=== PATIENT | male | born 1930 | race Caucasian/White ===

== ENCOUNTER 2016-11-01 12:36 | Emergency (ER) | payer MEDICARE ==
[~2016-11-01 12:36] MED LIST: CEPH-512 PO
[2016-11-01 12:50] VITALS: BP 112/60; PULSE 90; RESP 18; O2SAT 97
[2016-11-01 13:03] LABS: BASOPHILS % (AUTO) 0.3 % (0-3); EOSINOPHILS % (AUTO) 0.7 % (0-5); MONOCYTES % (AUTO) 5.6 % (4-12); Mean Corpuscular Hemoglobin 25.4 pg (27.0-35.0); Mean Corpuscular Volume 82.8 fL (81-100); NEUTROPHILS % (AUTO) 74.8 % (40-74); Platelet Count 254 bil/L (150-400)
--- NOTE | 2016-11-01 13:10 | ED.REPORT ---
HPI-General Illness Date of Service Nov 01, 2016 ED Provider: Vijaya Altman Wagner is an 86-year-old male with a history of dementia presenting via EMS from the [facility] in [place] for a 2 day history of increasing agitation. Caregivers report a history of acting out aggressively. Patient struck a plate glass window lacerating his right fifth MCP joint this morning. Caregivers are concerned regarding possible pneumonia, UTI, right knee pain causing increased agitation. He is unable to provide an accurate history or provide any complaints at this time. Nursing Notes Stated Complaint: MENTAL STATUS CHANGE Chief Complaint: General Complaint Nursing Notes Reviewed: Yes Allergies: Coded Allergies: lovastatin (Verified Allergy, Unknown, 11/01/16) Scheduled Cephalexin (Keflex) 500 Mg Capsule 500 MG PO QID Risperidone (Risperdal) 1 Mg Tablet 1 MG PO QAM General Time Seen by MD: 12:49 Chief Complaint Laceration (right fifth MCP joint ) Hx Obtained From: EMS Unable to Obtain Hx: Mental status Arrived By: Ambulance Location: : Wrist right (right pinky finger) Recent Healthcare: Recent doctor visit Similar Sx Previous: No Past Medical History Past Medical History Dementia GI Bleed Right Tibia Fracture Reports: Diabetes mellitus, Hypertension Past Surgical History Reports: Appendectomy Smoking History Never Smoker Social History Alcohol Use: Denies alcohol use Other Social History: Lives alone Ambulatory Status Independent Unable to Obtain History Past medical history, Past surgical history, Family history, Smoking history, Social history, Occupation Review of Systems Unable to Obtain ROS Mental status Physical Exam General: Well appearing, well developed, well nourished, no acute distress. Head: Atraumatic, normocephalic. Eyes: No scleral icterus or injection. No discharge. Vision grossly intact. ENT: Voice clear, hearing grossly intact. Respiratory: Regular rate and rhythm. Breath sounds present, clear to auscultation and equal in lower lateral sadler. Patient was uncooperative for auscultation of other sadler. No respiratory distress. No increased work of breathing, speaks in complete sentences. Cardiovascular: Regular rate and rhythm, without murmur, gallop or rub. No pedal edema. Gastrointestinal: Abdomen flat and non-tender without guarding or rebound. Bowel sounds normoactive. Skin: Warm and dry. Neurological: Grossly nonfocal. Psychological: Disoriented, near constant, unintelligible speech. Vital Signs Vital Signs Date Time Temp Pulse Resp B/P Pulse Ox O2 Delivery O2 Flow Rate FiO2 11/01/16 12:50 36.6 90 18 112/60 97 Room Air Initial VS: Reviewed, Vital signs normal General/Constitutional: Well-developed, Well-nourished Head / Eyes: Atraumatic, Normocephalic Neck: Full range of motion Respiratory: Breath sounds normal, Clear to auscultation, No respiratory distress Cardiovascular: Regular rate & rhythm, Heart sounds normal Extremities: Vascular intact Skin: Warm, Dry Trauma / Burn / Environmental: Positive: Abrasion (lateral edge on the right pinky finger ) Mental Status: Positive: Confused, Disoriented to person, Disoriented to place , Disoriented to time Interpretation & Diagnostics Lab Results Interpretation Result Diagram: 11/01/16 1245 11/01/16 1245 Test 11/01/16 12:45 11/01/16 13:05 11/01/16 14:19 White Blood Count 7.1th/mm3 (3.8-10.1) Red Blood Count 4.06mil/mm3 (4.40-5.80) Hemoglobin 10.3g/dL (13.8-17.2) Hematocrit 33.6% (41.0-50.0) Mean Corpuscular Volume 82.8fL (81-100) Mean Corpuscular Hemoglobin 25.4pg (27.0-35.0) Mean Corpuscular Hemoglobin Concent 30.7% (32.0-37.0) Red Cell Distribution Width 16.3% (12.3-15.4) Platelet Count 254bil/L (150-400) Neutrophils (%) (Auto) 74.8% (40-74) Lymphocytes (%) (Auto) 18.5% (14-46) Monocytes (%) (Auto) 5.6% (4-12) Eosinophils (%) (Auto) 0.7% (0-5) Basophils (%) (Auto) 0.3% (0-3) Sodium Level 136mEq/L (134-144) Potassium Level 4.4mEq/L (3.5-5.2) Chloride Level 102mEq/L (97-108) Carbon Dioxide Level 20mmol/L (18-29) Blood Urea Nitrogen 26mg/dL (8-27) Creatinine 1.19mg/dL (0.76-1.27) Estimat Glomerular Filtration Rate 62mL/min (>59) Glucose Level 371mg/dL (60-99) Calcium Level 8.7mg/dL (8.5-10.1) Total Bilirubin 0.3mg/dL (0.0-1.2) Aspartate Amino Transf (AST/SGOT) 11U/L (0-50) Alanine Aminotransferase (ALT/SGPT) 8U/L (0-44) Alkaline Phosphatase 98U/L (25-160) Total Protein 6.8g/dL (6.4-8.4) Albumin 3.6g/dL (3.4-5.0) Lactic Acid Level 2.7mmol/L (0.4-2.0) Urine Color Straw (YELLOW) Urine Appearance Hazy (CLEAR,HAZY) Urine pH 5.5 (5.0-8.0) Urine Specific [place] 1.020 (1.003-1.035) Urine Protein Negativemg/dL (NEG,TRACE) Urine Glucose (UA) 500mg/dL (NEGATIVE) Urine Ketones Negativemg/dL (NEGATIVE) Urine Occult Blood Negative (NEGATIVE) Urine Nitrite Negative (NEGATIVE) Urine Bilirubin Negative (NEGATIVE) Urine Urobilinogen Normalmg/dL (NORMAL) Urine Leukocyte Esterase Negative (NEGATIVE) Urine RBC 0-2/hpf (0-2) Urine WBC 0-5/hpf (0-5) Urine Epithelial Cells Occasional/hpf (NONE-MOD) Urine Crystals None seen (NONE SEEN) Urine Bacteria None/hpf (NONE-FEW) Urine Hyaline Casts Occasional/lpf (NONE) Urine Granular Casts None seen (NONE SEEN) Urine Waxy Casts None seen (NONE SEEN) Urine Red Blood Cell Casts None seen (NONE SEEN) Urine White Blood Cell Casts None seen (NONE SEEN) Urine Mucus None seen (None Seen) Urine Trichomonas None seen (NONE SEEN) Urine Yeast None (NONE SEEN) Urinalysis Comment None Urine Culture Reflexed Not indicated X-Ray Chest Interpretation Chest Xray Interpretation: PROCEDURE: X-RAY CHEST ONE VIEW, PORTABLE ([id number]) INDICATIONS: 86 year-old male with altered mental status. IMPRESSION: 1. Decreased lung volumes, without acute cardiopulmonary disease. 2. Right shoulder rotator cuff arthropathy. View: Portable, 1 view Interpretation / Wet Read by: Interpret - Radiologist Re-Eval/Medical Decision Time of Eval: 14:58 Re-Evaluation/Progress Note: Rechecked patient. Informed patient of plan to return to memory care facility. Counseled Regarding: Diagnosis, Lab results, Need for follow-up, When/why to return to ED Discharge & Departure Primary Impression: Dementia with aggressive behavior Additional Impression: Hematuria Disposition: Home Discharge Condition All VS Reviewed: Yes Condition: Stable Additional Instructions: We found no evidence of severe infection today. We did collect some urine, there is a bit of blood but no evidence of white blood cells or infection. Will be cultured and if it returns positive he will be contacted. There is no indication for antibiotics at this time Suspect that his increasing agitation is related to his progressing dementia. They have been using Vistaril in the dementia care unit and this has not been effective. My recommendation is adding a small dose of Risperdal first thing in the morning. 1 mg respirdal q am. Rx is writen. Dr Hernandez will need to review for efficacy in the next weeks. This has electronically been sent to [facility] for you today We will have him return to his memory care facility Referrals: Niki Hernandez MD (PCP) Scribe Attestation Portions of this note were transcribed by Laurel Graham & Alberto Tomlinson. I, Dr. Altman personally performed the history, physical exam and medical decision-making; I reviewed and confirmed the accuracy of the information in the transcribed note. Signed by: Laurel Tomlinson., Kasey, 10/23/2016 and 14:58. copies to: Niki Hernandez MD, Seth PA-C Nov 01, 2016 13:10 Laurel Graham Nov 01, 2016 13:49 ALBERTO TOMLINSON Nov 01, 2016 14:27 Vijaya Altman MD Nov 01, 2016 15:23
--- NOTE | 2016-11-01 13:28 | DRSVH ---
PROCEDURE: X-RAY CHEST ONE VIEW, PORTABLE ([id number]) INDICATIONS: 86 year-old male with altered mental status. TECHNIQUE: One view of the chest was acquired. COMPARISON: [facility], CR, XR CHEST 1VW (PORTABLE), 03/09/2015, 14:48. FINDINGS: Surgical changes and devices: Surgical clips project over the gastroesophageal junction as before. Lungs and pleura: No pleural effusions or pneumothorax. Lungs are clear. Lung volumes are decrease d. Mediastinum: Mediastinal contours appear normal. Heart size is normal. There is aortic atheroscler osis. Bones and chest wall: No suspicious bony lesions. There is superior right humeral head migration, w ith narrowed acromial humeral interval. Overlying soft tissues appear unremarkable. IMPRESSION: 1. Decreased lung volumes, without acute cardiopulmonary disease. 2. Right shoulder rotator cuff arthropathy. Dictated by: Mark Tamayo M.D. on 11/01/2016 at 12:25 Approved by: Mark Tamayo M.D. on 11/01/2016 at 12:26
[2016-11-01 14:35] LABS: APPEARANCE,URINE HAZY (CLEAR,HAZY); COLOR,URINE STRAW (YELLOW); PH,URINE 5.5 (5.0-8.0)
[2016-11-01 14:36] LABS: OCCULT BLOOD,URINE NEGATIVE (NEGATIVE); UROBILINOGEN,URINE NORMAL (NORMAL)
[2016-11-01] MEDS ORDERED: RISP1TAB90 PO (15:21)
== END 2016-11-01 16:15 | disposition home or self-care (01) ==
LOC: EDBD 12:36 → SED 12:36
DX: S60.416A Abrasion of right little finger, initial encounter (principal); F03.91 Unspecified dementia, unspecified severity, with behavioral disturbance; R31.9 Hematuria, unspecified; W26.8XXA Contact with other sharp object(s), not elsewhere classified, initial encounter; Y93.89 Activity, other specified; Y99.8 Other external cause status; Y92.129 Unspecified place in nursing home as the place of occurrence of the external cause; E11.9 Type 2 diabetes mellitus without complications; I10 Essential (primary) hypertension; Z90.89 Acquired absence of other organs